=== PATIENT | female | born 2005 | race Two or more races ===

== ENCOUNTER 2023-03-08 08:58 | Emergency (ER) | payer OTHER ==
[~2023-03-08] VITALS: Ht 162.6 cm; Wt 74.4 kg
== END 2023-03-08 19:09 | disposition home or self-care (01) ==
LOC: ER 08:58 → EMR PED 09:17 → ER 19:09
DX: K29.70 Gastritis, unspecified, without bleeding (principal)

== ENCOUNTER 2024-12-24 14:44 | Outpatient (CLI) | payer OTHER | END 2024-12-24 14:50 | disposition home or self-care (01) | LOC: PRENATAL 14:44 | PROVIDERS: ATTEND Obstetrics & Gynecology Maternal & Fetal Medicine | DX: O44.00 Complete placenta previa NOS or without hemorrhage, unspecified trimester (principal); Z3A.20 20 weeks gestation of pregnancy ==

== ENCOUNTER 2025-03-17 15:53 | Outpatient (CLI) | payer OTHER | END 2025-03-17 15:54 | disposition home or self-care (01) | LOC: PRENATAL 15:53 | DX: O26.849 Uterine size-date discrepancy, unspecified trimester (principal); O36.8199 Decreased fetal movements, unspecified trimester, other fetus; Z3A.33 33 weeks gestation of pregnancy ==